=== PATIENT | female | born 1995 | race Caucasian/White ===

== ENCOUNTER 2017-04-03 12:15 | Emergency (ER) | payer SELFPAY ==
[~2017-04-03] VITALS: Wt 54.6 kg
[2017-04-03] MEDS ORDERED: AMO500 PO (13:27)
--- NOTE | 2017-04-03 14:09 | ERD ---
ER Documentation Chief Complaint Date/Time DATE: 04/03/17 TIME: 14:08 Chief Complaint sore throat for the past few days. coughing but no ear pain or congestion HPI Patient is a 21-year-old female with no medical problems who presents with "strep throat". The patient said her symptoms started 2 days ago. She has sore throat and trouble swallowing. She said that this morning she had a subjective fever. She felt very hot. She has had a cough as well. She tried Advil. She does not currently have a primary doctor. ROS All systems reviewed and are negative except as per history of present illness. Medications Home Meds Active Scripts Amoxicillin* (Amoxicillin*) 500 Mg Cap, 500 MG PO TID for 10 Days, CAP Prov:KEN COOPER MD 04/03/17 PMhx/Soc Medical and Surgical Hx: pt denies Medical Hx History of Surgery: No Anesthesia Reaction: No Hx Neurological Disorder: No Hx Respiratory Disorders: No Hx Cardiac Disorders: No Hx Psychiatric Problems: No Hx Miscellaneous Medical Probl: No Hx Alcohol Use: No Hx Substance Use: No Hx Tobacco Use: No FmHx Family History: diabetes Physical Exam Vitals Vital Signs Date Time Temp Pulse Resp B/P Pulse Ox O2 Delivery O2 Flow Rate FiO2 04/03/17 12:48 98.4 94 21 130/59 99 Physical Exam Const: No acute distress Head: Atraumatic Eyes: Normal Conjunctiva ENT: Erythematous tonsils bilaterally without uvular deviation or signs of peritonsillar abscess, no stridor over the neck Neck: Full range of motion..~ No meningismus. Resp: Clear to auscultation bilaterally Cardio: Regular rate and rhythm, no murmurs Abd: Soft, non tender, non distended. Normal bowel sounds Skin: No petechiae or rashes Back: No midline or flank tenderness Ext: No cyanosis, or edema Neur: Awake and alert Psych: Normal Mood and Affect Procedures/MDM Smoking Cessation Therapy: Pt. was lectured for greater than 3 minutes on the health risks of continued smoking and the benefits of cessation. Patient is a 21-year-old female who presents with what appears to be an acute strep pharyngitis. The patient will be given amoxicillin for 10 day course. She can take up appropriate as needed for pain or inflammation. At this point I doubt peritonsillar abscess, retropharyngeal abscess, or epiglottitis. The patient understands the plan is okay for discharge at this time. She is otherwise well-appearing upon discharge. Departure Diagnosis: Primary Impression: Pharyngitis Pharyngitis/tonsillitis etiology: unspecified etiology Qualified Code: J02.9 - Pharyngitis, unspecified etiology Additional Impression: Sore throat Condition: Fair Patient Instructions: Pharyngitis, Strep (Presumed) Referrals: [facility] YOU HAVE RECEIVED A MEDICAL SCREENING EXAM AND THE RESULTS INDICATE THAT YOU DO NOT HAVE A CONDITION THAT REQUIRES URGENT TREATMENT IN THE EMERGENCY DEPARTMENT. FURTHER EVALUATION AND TREATMENT OF YOUR CONDITION CAN WAIT UNTIL YOU ARE SEEN IN YOUR DOCTORS OFFICE WITHIN THE NEXT 1-2 DAYS. IT IS YOUR RESPONSIBILITY TO MAKE AN APPOINTMENT FOR FOLOW-UP CARE. IF YOU HAVE A PRIMARY DOCTOR --you should call your primary doctor and schedule an appointment IF YOU DO NOT HAVE A PRIMARY DOCTOR YOU CAN CALL OUR PHYSICIAN REFERRAL HOTLINE AT IF YOU CAN NOT AFFORD TO SEE A PHYSICIAN YOU CAN CHOSE FROM THE FOLLOWING [facility] [address] [facility] [facility] [address] [facility] [facility] [address] [facility] [facility] [address] [facility]. [facility] [address] [facility]. [facility]. [address] Additional Instructions: Call your primary care doctor TOMORROW for an appointment during the next 1-2 days.See the doctor sooner or return here if your condition worsens before your appointment time. KEN COOPER MD Apr 03, 2017 14:09
== END 2017-04-03 13:46 | disposition home or self-care (01) ==
LOC: FTE 12:15
DX: J02.9 Acute pharyngitis, unspecified (principal)
CPT/HCPCS: 99283